=== PATIENT | female | born 1940 | race Caucasian/White ===

== ENCOUNTER → 2021-09-01 | Outpatient (CLI) | payer MEDICARE, BC, OTHER ==
[~2021-09-01] MED LIST: CLARINEX5 MG PO; CORAL CALCIUM1 EAC3 PO; ECOTRIN81 MG PO; LOPRESSOR100 MG PO; OMEGA Q PO; OMEPRAZOLE40 MG PO; PRAVACHOL20 MG PO; THERAGRAN M TAB1 EA PO; TURMERIC PO; VISION PLUS LU1 EACH PO
== END ==
LOC: HEART 5 13:44
DX: I47.1 Supraventricular tachycardia (principal); R00.2 Palpitations; R06.02 Shortness of breath; I08.1 Rheumatic disorders of both mitral and tricuspid valves
CPT/HCPCS: 93306

== ENCOUNTER → 2022-04-08 | Day surgery (SDC) | payer MEDICARE, BC ==
[~2022-04-08] MED LIST changes: +HARD NAILS2500 MCG PO; +NITROSTAT0.4 MG SL; +NORVASC5 MG PO; +PEPCID20 MG PO; +SOTALOL80 MG PO; +ZYRTEC10 M3 PO
== END | disposition home or self-care (01) ==
LOC: OR 06:27
DX: R91.8 Other nonspecific abnormal finding of lung field (principal); E04.1 Nontoxic single thyroid nodule; E87.1 Hypo-osmolality and hyponatremia; I10 Essential (primary) hypertension; I25.10 Atherosclerotic heart disease of native coronary artery without angina pectoris; E78.5 Hyperlipidemia, unspecified; K21.9 Gastro-esophageal reflux disease without esophagitis; M19.90 Unspecified osteoarthritis, unspecified site; D64.9 Anemia, unspecified; Z79.82 Long term (current) use of aspirin; Z79.899 Other long term (current) drug therapy; Z88.1 Allergy status to other antibiotic agents; Z88.2 Allergy status to sulfonamides; Z88.5 Allergy status to narcotic agent; Z88.8 Allergy status to other drugs, medicaments and biological substances
CPT/HCPCS: 71045; 71250; 76000; 87015; 87116; 87205; J1100; J2001; J2370; J2405; J2704; J3010; J7120

== ENCOUNTER → 2022-04-20 | Outpatient (CLI) | payer MEDICARE, BC | LOC: HEART 5 15:47 | DX: R06.02 Shortness of breath (principal) | CPT/HCPCS: 94010; 94729 ==